=== PATIENT | male | born 1935 | race Caucasian/White ===

== ENCOUNTER 2017-06-07 10:08 | Emergency (ER) | payer MEDICARE ==
[2017-06-07] MEDS ORDERED: Meclizine TAB* 12.5 MG PO ONE (12:14)
[2017-06-07 12:40] LABS: Hematocrit 45 % (42-52); Hemoglobin 15.1 g/dl (14.0-18.0); Mean Corpuscular HGB Conc 34 g/dl (31-36); Mean Corpuscular Hemoglobin 32 pg (27-31); Mean Corpuscular Volume 94 fL (80-94); Mean Platelet Volume 8 um3 (7.4-10.4); Red Blood Count 4.76 10^6/ul (4.0-5.4); Red Cell Distribution Width 14 % (10.5-15); White Blood Count 7.1 10^3/ul (3.5-10.8)
--- NOTE | 2017-06-07 12:41 | RAD ---
INDICATION: Vertigo. COMPARISON: Comparison is made with a prior CT of the brain from August 12, 2016. TECHNIQUE: Contiguous axial sections of the brain were obtained from the skull base to the vertex without contrast. FINDINGS: The ventricles, cisterns and sulci are enlarged consistent with age-related atrophy. There are multiple focal areas of decreased density in the subcortical and periventricular white matter suggestive of mild to moderate chronic small vessel ischemic changes. There is no evidence for hemorrhage. No significant focal osseous abnormality is seen. The visualized portion of the paranasal sinuses and mastoid air cells appear clear. IMPRESSION: NO EVIDENCE FOR GROSS ACUTE INFARCT, MASS EFFECT OR HEMORRHAGE.
[2017-06-07 12:53] LABS: Albumin 3.9 g/dL (3.2-5.2); BUN/Creatinine Ratio 12.2 (8-20); Calcium 9.3 mg/dL (8.6-10.3); EGFR African American 94.9 (>60); EGFR Non-African American 73.8 (>60); Globulin 2.9 g/dL (2-4); Total Protein 6.8 g/dL (6.4-8.9)
[2017-06-07 12:57] LABS: Urine Bilirubin Negative (Negative); Urine Glucose Negative (Negative); Urine Nitrite Negative (Negative)
[2017-06-07 13:27] LABS: TSH (Thyroid Stimulating Horm) 1.56 mcIU/mL (0.34-5.60)
[2017-06-07 14:50] VITALS: BP 139/78
--- NOTE | 2017-06-07 22:16 | ED ---
Ekaterina Jorgensen Thomas, scribed for Mo Mobley MD on 06/07/17 at 1210 . Dizziness - HPI Summary HPI Summary: Mr. Sims is a 81 year old WM who presents with a several hour history of being off balance. He is listing when he walks. He has no DOMINGUEZ, tinnitus or visual changes. This happened to him much worse about a year ago and he refused admission to the hospital. He was given meclizine but is equivocal about whether it helped. - History Of Current Complaint Chief Complaint: EDDizziness Stated Complaint: DIZZY Hx Obtained From: Patient, Family/Estimator [employer] Making - in room Onset/Duration: Still Present Timing: Constant - onset three days ago Character: Unable To Describe - "drifting forwards and backwards" Aggravating Factor(s): Nothing Alleviating Factor(s): Nothing Associated Signs And Symptoms: Positive: Palpitations - intermittent, Other: - POS: chronic "trouble finding words"; NEG: auditory changes Related History: Similar Episode/Dx as - Had a bout of dizziness about a year ago and this workup was negative. - Allergies/Home Medications Allergies/Adverse Reactions: Allergies Allergy/AdvReac Type Severity Reaction Status Date / Time No Known Allergies Allergy Verified 06/07/17 10:53 Home Medications: Home Medications Rivastigmine CAP(NF) [Exelon (NF)] 1.5 mg PO DAILY 06/07/17 [History Confirmed 06/07/17] PMH/Surg Hx/FS Hx/Imm Hx Previously Healthy: No Cardiovascular History: Reports: Hx Hypercholesterolemia, Hx Myocardial Infarction - evidence of prior infarct on ekg Denies: Hx Pacemaker/ICD Sensory History: Denies: Hx Hearing Aid Psychiatric History: Denies: Hx Panic Disorder - Cancer History Cancer Type, Location and Year: skin cancer removed; benign - Surgical History Surgery Procedure, Year, and Place: herina repair. bunion surgery bilat Infectious Disease History: No Infectious Disease History: Denies: Traveled Outside the [place] in Last 30 Days - Family History Known Family History: Positive: Cardiac Disease, Hypertension - mother, Other - [place]- mother - Social History Alcohol Use: None Substance Use Type: Reports: None Smoking Status (MU): Never Smoked Tobacco Review of Systems Negative: Fever Negative: Other - NEG: auditory changes Positive: Palpitations Neurological: Other - POS: dizziness, "trouble finding words" (chronic) All Other Systems Reviewed And Are Negative: Yes Physical Exam Triage Information Reviewed: Yes Vital Signs On Initial Exam: Initial Vitals BP 142/82 06/07/17 10:48 Vital Signs Reviewed: Yes Appearance: Positive: Well-Appearing, No Pain Distress Skin: Positive: Warm, Skin Color Reflects Adequate Perfusion, Dry Head/Face: Positive: Normal Head/Face Inspection Eyes: Positive: Normal ENT: Positive: Normal ENT inspection Neck: Positive: Supple, Nontender Respiratory/Lung Sounds: Positive: Clear to Auscultation, Breath Sounds Present Cardiovascular: Positive: RRR Abdomen Description: Positive: Nontender, Soft Bowel Sounds: Positive: Present Musculoskeletal: Positive: Normal Neurological: Positive: Normal Psychiatric: Positive: Normal, Affect/Mood Appropriate - [place] Coma Scale Coma Scale Total: 15 Diagnostics - Vital Signs Vital Signs Temp Pulse Resp BP Pulse Ox 06/07/17 12:00 24 06/07/17 11:30 56 18 137/73 92 06/07/17 11:00 58 16 155/90 94 06/07/17 10:58 16 06/07/17 10:57 63 163/86 06/07/17 10:56 98.3 F 58 16 142/82 96 06/07/17 10:51 55 17 163/86 95 06/07/17 10:50 57 95 06/07/17 10:49 58 161/86 97 06/07/17 10:48 142/82 - Laboratory Lab Results: Lab Results 06/07/17 06/07/17 06/07/17 Range/Units 12:16 12:16 12:16 WBC 7.1 (3.5-10.8) 10^3/ul RBC 4.76 (4.0-5.4) 10^6/ul Hgb 15.1 (14.0-18.0) g/dl Hct 45 (42-52) % MCV 94 (80-94) fL MCH 32 H (27-31) pg MCHC 34 (31-36) g/dl RDW 14 (10.5-15) % Plt Count 199 (150-450) 10^3/ul MPV 8 (7.4-10.4) um3 Neut % (Auto) 70.2 (38-83) % Lymph % (Auto) 20.9 L (25-47) % [place] % (Auto) 7.3 (1-9) % Eos % (Auto) 0.6 (0-6) % Baso % (Auto) 1.0 (0-2) % Absolute Neuts (auto) 5.0 (1.5-7.7) 10^3/ul Absolute Lymphs (auto) 1.5 (1.0-4.8) 10^3/ul Absolute Monos (auto) 0.5 (0-0.8) 10^3/ul Absolute Eos (auto) 0 (0-0.6) 10^3/ul Absolute Basos (auto) 0.1 (0-0.2) 10^3/ul Absolute Nucleated RBC 0.01 10^3/ul Nucleated RBC % 0.2 INR (Anticoag Therapy) 0.95 (0.89-1.11) Sodium 137 (133-145) mmol/L Potassium 4.0 (3.5-5.0) mmol/L Chloride 105 (101-111) mmol/L Carbon Dioxide 25 (22-32) mmol/L Anion Gap 7 (2-11) mmol/L BUN 12 (6-24) mg/dL Creatinine 0.98 (0.67-1.17) mg/dL Est GFR ( Amer) 94.9 (>60) Est GFR (Non-Af Amer) 73.8 (>60) BUN/Creatinine Ratio 12.2 (8-20) Glucose 96 (70-100) mg/dL Lactic Acid (0.5-2.0) mmol/L Calcium 9.3 (8.6-10.3) mg/dL Magnesium 2.0 (1.9-2.7) mg/dL Total Bilirubin 1.00 (0.2-1.0) mg/dL AST 16 (13-39) U/L ALT 13 (7-52) U/L Alkaline Phosphatase 41 (34-104) U/L Troponin I 0.00 (<0.04) ng/mL Total Protein 6.8 (6.4-8.9) g/dL Albumin 3.9 (3.2-5.2) g/dL Globulin 2.9 (2-4) g/dL Albumin/Globulin Ratio 1.3 (1-3) TSH 1.56 (0.34-5.60) mcIU/mL Urine Color Urine Appearance Urine pH (5-9) Ur Specific [place] (1.010-1.030) Urine Protein (Negative) Urine Ketones (Negative) Urine Blood (Negative) Urine Nitrate (Negative) Urine Bilirubin (Negative) Urine Urobilinogen (Negative) Ur Leukocyte Esterase (Negative) Urine Glucose (Negative) 06/07/17 06/07/17 Range/Units 12:16 12:44 WBC (3.5-10.8) 10^3/ul RBC (4.0-5.4) 10^6/ul Hgb (14.0-18.0) g/dl Hct (42-52) % MCV (80-94) fL MCH (27-31) pg MCHC (31-36) g/dl RDW (10.5-15) % Plt Count (150-450) 10^3/ul MPV (7.4-10.4) um3 Neut % (Auto) (38-83) % Lymph % (Auto) (25-47) % [place] % (Auto) (1-9) % Eos % (Auto) (0-6) % Baso % (Auto) (0-2) % Absolute Neuts (auto) (1.5-7.7) 10^3/ul Absolute Lymphs (auto) (1.0-4.8) 10^3/ul Absolute Monos (auto) (0-0.8) 10^3/ul Absolute Eos (auto) (0-0.6) 10^3/ul Absolute Basos (auto) (0-0.2) 10^3/ul Absolute Nucleated RBC 10^3/ul Nucleated RBC % INR (Anticoag Therapy) (0.89-1.11) Sodium (133-145) mmol/L Potassium (3.5-5.0) mmol/L Chloride (101-111) mmol/L Carbon Dioxide (22-32) mmol/L Anion Gap (2-11) mmol/L BUN (6-24) mg/dL Creatinine (0.67-1.17) mg/dL Est GFR ( Amer) (>60) Est GFR (Non-Af Amer) (>60) BUN/Creatinine Ratio (8-20) Glucose (70-100) mg/dL Lactic Acid 0.8 (0.5-2.0) mmol/L Calcium (8.6-10.3) mg/dL Magnesium (1.9-2.7) mg/dL Total Bilirubin (0.2-1.0) mg/dL AST (13-39) U/L ALT (7-52) U/L Alkaline Phosphatase (34-104) U/L Troponin I (<0.04) ng/mL Total Protein (6.4-8.9) g/dL Albumin (3.2-5.2) g/dL Globulin (2-4) g/dL Albumin/Globulin Ratio (1-3) TSH (0.34-5.60) mcIU/mL Urine Color Yellow Urine Appearance Clear Urine pH 6.0 (5-9) Ur Specific [place] 1.018 (1.010-1.030) Urine Protein Negative (Negative) Urine Ketones 1+ H (Negative) Urine Blood Negative (Negative) Urine Nitrate Negative (Negative) Urine Bilirubin Negative (Negative) Urine Urobilinogen Negative (Negative) Ur Leukocyte Esterase Negative (Negative) Urine Glucose Negative (Negative) Result Diagrams: 06/07/17 12:16 06/07/17 12:16 Lab Statement: Any lab studies that have been ordered have been reviewed, and results considered in the medical decision making process. - CT CT Brain CT Interpretation: No Acute Changes - No evidence for gross acute infarct, mass effect, or hemorrhage. ED physician has reviewed this report and agrees. CT Interpretation Completed By: Radiologist - EKG 10:51 Cardiac Rate: Bradycardia - 57 BPM EKG Interpretation: SB. Nonspecific diffuse flattening. Dizzy Course/Dx - Course Course Of Treatment: Mr. Sims is a 81 year old WM who presents with a several hour history of being off balance. He is listing when he walks. He has no DOMINGUEZ, tinnitus or visual changes. This happened to him much worse about a year ago and he refused admission to the hospital. He was given meclizine but is equivocal about whether it helped. Here his W/U was negative and he got complete relief with meclizine. I tried to convince him to be admitted for a more thorough W/U but he was intransigent. I gave him a script for meclizine again and encouraged F/U. - Diagnoses Provider Diagnoses: Vertigo - Provider Notifications Discussed Care Of Patient With: Katerin Núñez Time Discussed With Above Provider: 13:57 Instructed by Provider To: Other - I discussed care with Dr. Núñez, neurology. Discharge - Discharge Plan Condition: Stable Disposition: HOME Prescriptions: Meclizine TAB* [Antivert 12.5 TAB*] 25 mg PO TID PRN #20 tab PRN Reason: Dizziness Patient Education Materials: Vertigo (ED) Referrals: [facility] [place] [facility] REFERRAL [Outside] - 5 Days Additional Instructions: Follow up with your primary care provider within a week. If you do not have a primary care provider, you can use the physician referral service to find one. Return to the emergency department for any new or worsening symptoms. The documentation as recorded by the Ekaterina martínez Thomas accurately reflects the service I personally performed and the decisions made by me, Mo Mobley MD.
== END 2017-06-07 14:58 | disposition home or self-care (01) ==
LOC: ED 10:08
DX: R42 Dizziness and giddiness (principal); E78.00 Pure hypercholesterolemia, unspecified; I25.2 Old myocardial infarction; Z85.828 Personal history of other malignant neoplasm of skin
CPT/HCPCS: 36415; 70450; 80053; 81003; 83605; 83735; 84443; 84484; 85025; 85610; 93005; 99283; A9270-GY